=== PATIENT | female | born 1995 | race Two or more races ===

== ENCOUNTER 2019-02-16 09:41 | Outpatient (CLI) | payer OTHER | END 2019-02-16 09:48 | disposition home or self-care (01) | LOC: LAB 09:41 | DX: O03.9 Complete or unspecified spontaneous abortion without complication (principal) ==

== ENCOUNTER 2019-02-16 10:42 | Outpatient (CLI) | payer OTHER | END 2019-02-16 10:46 | disposition home or self-care (01) | LOC: SONOGRAMA 10:42 | DX: O03.9 Complete or unspecified spontaneous abortion without complication (principal) ==

== ENCOUNTER 2019-02-16 12:03 | Inpatient (IN) | payer OTHER ==
[~2019-02-16] VITALS: Ht 160 cm; Wt 137.4 kg
[2019-02-18] MEDS ORDERED: NAPROXEN500 MG PO (07:44)
== END 2019-02-18 11:33 | disposition home or self-care (01) | DRG 819 ==
LOC: ER 12:03 → O/R 14:00 → OB/GYN 14:00
PROVIDERS: ADMIT Specialist
PROC: 10T20ZZ Resection of Products of Conception, Ectopic, Open Approach (ICD-10-PCS; 2019-02-16)
PROC: 0UB50ZZ Excision of Right Fallopian Tube, Open Approach (ICD-10-PCS; principal; 2019-02-16 16:00)
DX: O00.101 Right tubal pregnancy without intrauterine pregnancy (principal)

== ENCOUNTER 2022-07-02 12:30 | Outpatient (CLI) | payer OTHER ==
[~2022-07-02 12:30] MED LIST: NAPROXEN500 MG PO
== END 2022-07-02 12:41 | disposition home or self-care (01) ==
LOC: SONOGRAMA 12:30
PROVIDERS: ATTEND Specialist
DX: O09.90 Supervision of high risk pregnancy, unspecified, unspecified trimester (principal); Z34.00 Encounter for supervision of normal first pregnancy, unspecified trimester; O46.8X1 Other antepartum hemorrhage, first trimester; Z3A.01 Less than 8 weeks gestation of pregnancy

== ENCOUNTER 2022-07-16 11:08 | Outpatient (CLI) | payer OTHER | END 2022-07-16 11:16 | disposition home or self-care (01) | LOC: SONOGRAMA 11:08 | PROVIDERS: ATTEND Specialist | DX: Z34.00 Encounter for supervision of normal first pregnancy, unspecified trimester (principal) ==

== ENCOUNTER 2022-08-12 09:17 | Outpatient (CLI) | payer OTHER | END 2022-08-12 09:26 | disposition home or self-care (01) | LOC: SONOGRAMA 09:17 | PROVIDERS: ATTEND Specialist | DX: O03.80 Unspecified complication following complete or unspecified spontaneous abortion (principal) ==

== ENCOUNTER 2022-08-14 08:55 | Day surgery (SDC) | payer OTHER | END 2022-08-14 14:30 | disposition home or self-care (01) | LOC: CIR.AMB 08:55 | PROVIDERS: ATTEND Specialist | DX: O02.1 Missed abortion (principal); O72.2 Delayed and secondary postpartum hemorrhage; Z20.822 Contact with and (suspected) exposure to COVID-19 ==